=== PATIENT | male | born 1980 | race African-American/Black ===

== ENCOUNTER 2016-11-23 10:31 | Emergency (ER) | payer SELFPAY ==
[~2016-11-23] VITALS: Ht 172.7 cm; Wt 83.9 kg
[2016-11-23] MEDS ORDERED: TIZA2TAB4 PO (10:40)
--- NOTE | 2016-11-23 10:43 | NUR ---
Dr Mcdonald at the bedside for eval and exam.
[2016-11-23] MEDS: HYDROCODONE/APAP 5-325MG TABLET PO ONE (10:55)
[2016-11-23] MEDS: KETOROLAC TROMETHAMINE 15 MG INJ IM ONE (10:56)
[2016-11-23 11:00] VITALS: BP 115/76
[2016-11-23] MEDS ORDERED: HYDROCODONE/APAP 5-325MG TABLET ONE (11:06)
[2016-11-23] MEDS ORDERED: KETOROLAC TROMETHAMINE 30 MG INJ ONE (11:06)
--- NOTE | 2016-11-23 11:22 | NUR ---
Patient discharged to home in stable conditon. Written and verbal after care instructions given. Patient verbalizes understanding of instructions.
== END 2016-11-23 11:23 | disposition home or self-care (01) ==
LOC: ER 10:31
DX: S39.012A Strain of muscle, fascia and tendon of lower back, initial encounter (principal); G89.29 Other chronic pain; M79.7 Fibromyalgia; X50.9XXA Other and unspecified overexertion or strenuous movements or postures, initial encounter; Y93.39 Activity, other involving climbing, rappelling and jumping off; Y92.9 Unspecified place or not applicable; Y99.9 Unspecified external cause status
CPT/HCPCS: 96372; 99283; A4663; J1885

== ENCOUNTER 2016-11-29 15:49 | Emergency (ER) | payer MEDICAID ==
[~2016-11-29] VITALS: Ht 172.7 cm; Wt 83.9 kg
[~2016-11-29 15:49] MED LIST: TIZA2TAB4 PO
--- NOTE | 2016-11-29 17:07 | NUR ---
DR HERNANDEZ AT THE BEDSIDE FOR EVAL AND EXAM.
--- NOTE | 2016-11-29 17:36 | NUR ---
Patient discharged to home in stable conditon. Written and verbal after care instructions given. Patient verbalizes understanding of instructions.
== END 2016-11-29 17:36 | disposition home or self-care (01) ==
LOC: ER 15:50
DX: S39.012A Strain of muscle, fascia and tendon of lower back, initial encounter (principal); G89.29 Other chronic pain; R07.9 Chest pain, unspecified; M79.7 Fibromyalgia; X50.9XXA Other and unspecified overexertion or strenuous movements or postures, initial encounter; Y93.89 Activity, other specified; Y92.9 Unspecified place or not applicable; Y99.9 Unspecified external cause status
CPT/HCPCS: 99283; A4663

== ENCOUNTER 2016-12-05 13:12 | Emergency (ER) | payer MEDICAID ==
[~2016-12-05] VITALS: Ht 172.7 cm; Wt 86.2 kg
[2016-12-05] MEDS ORDERED: DULO60CA45 PO (13:20)
[2016-12-05] MEDS ORDERED: OXYC-133 PO (13:20)
--- NOTE | 2016-12-05 13:59 | NUR ---
Patient discharged to home in stable conditon. Written and verbal after care instructions given. Patient verbalizes understanding of instructions.pt walks in steady gait.
== END 2016-12-05 13:59 | disposition home or self-care (01) ==
LOC: ER 13:12
DX: Z76.0 Encounter for issue of repeat prescription (principal); G89.29 Other chronic pain; M79.7 Fibromyalgia
CPT/HCPCS: 99283; A4663

== ENCOUNTER 2016-12-22 18:33 | Emergency (ER) | payer MEDICAID ==
[~2016-12-22] VITALS: Ht 172.7 cm; Wt 86.2 kg
[~2016-12-22 18:33] MED LIST changes: +DULO60CA45 PO; +OXYC-133 PO
--- NOTE | 2016-12-22 21:15 | NUR ---
Patient discharged to home in stable conditon. Written and verbal after care instructions given. Patient verbalizes understanding of instructions.
== END 2016-12-22 21:16 | disposition home or self-care (01) ==
LOC: ER 18:34
DX: Z76.0 Encounter for issue of repeat prescription (principal); G89.29 Other chronic pain; M54.9 Dorsalgia, unspecified; M79.7 Fibromyalgia
CPT/HCPCS: A4663

== ENCOUNTER 2017-01-11 13:11 | Emergency (ER) | payer MEDICAID ==
[~2017-01-11] VITALS: Ht 172.7 cm; Wt 86.2 kg
[2017-01-11] MEDS ORDERED: OXYCODONE/APAP 5-325 MG TABLET PO ONE (16:15)
--- NOTE | 2017-01-11 16:20 | NUR ---
Patient discharged to home in stable conditon. Written and verbal after care instructions given. Patient verbalizes understanding of instructions. Stressed follow up with pmd/pain management.
[2017-01-11] MEDS ORDERED: OXYCODONE/APAP 5-325 MG TABLET ONE (16:33)
== END 2017-01-11 16:21 | disposition home or self-care (01) ==
LOC: ER 13:13
DX: Z76.0 Encounter for issue of repeat prescription (principal); M79.7 Fibromyalgia; M54.2 Cervicalgia
CPT/HCPCS: 99283; A4663

== ENCOUNTER 2017-03-17 16:19 | Emergency (ER) | payer SELFPAY ==
[~2017-03-17] VITALS: Ht 172.7 cm; Wt 88.5 kg
--- NOTE | 2017-03-17 19:25 | NUR ---
Patient discharged to home in stable conditon. Written and verbal after care instructions given. Patient verbalizes understanding of instructions.
== END 2017-03-17 19:25 | disposition home or self-care (01) ==
LOC: ER 16:20
DX: G89.29 Other chronic pain (principal); Z76.5 Malingerer [conscious simulation]; M79.7 Fibromyalgia; F32.9 Major depressive disorder, single episode, unspecified; Z88.6 Allergy status to analgesic agent
CPT/HCPCS: 99283; A4663

== ENCOUNTER 2017-04-13 19:33 | Emergency (ER) | payer OTHER ==
[~2017-04-13] VITALS: Ht 172.7 cm; Wt 88.5 kg
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
[2017-04-13] MEDS ORDERED: KETOROLAC TROMETHAMINE 30 MG INJ IM ONE (20:15)
[2017-04-13] MEDS ORDERED: KETOROLAC TROMETHAMINE 30 MG INJ ONE (20:30)
--- NOTE | 2017-04-13 20:41 | NUR ---
Gave pt RX + instructions and d/c instructions, verbalized understanding.
== END 2017-04-13 20:43 | disposition home or self-care (01) ==
LOC: ER 19:33
DX: G89.29 Other chronic pain (principal); M79.602 Pain in left arm; M79.7 Fibromyalgia; Z88.6 Allergy status to analgesic agent
CPT/HCPCS: A4663; J1885